=== PATIENT | female | born 1935 | race Caucasian/White ===

== ENCOUNTER 2017-03-27 14:13 | Emergency (ER) | payer MEDICARE, OTHER ==
[2017-03-27 14:23] VITALS: BP 125/56
[2017-03-27] MEDS ORDERED: HYDROmorphone 1 MG/ML Syringe IM ONE (14:41)
--- NOTE | 2017-03-27 15:46 | EDM.PDOC ---
ED HPI Trauma - General Chief Complaint: Lower Extremity Injury/Pain Stated Complaint: BY AMBULANCE Time Seen by Provider: 03/27/17 14:25 Source: Reports: Patient, EMS, Family (son), Old records, RN, RN notes reviewed History Limitations: Reports: No limitations - History of Present Illness INITIAL COMMENTS - FREE TEXT/NARRATIVE: Arrives from assisted living by ambulance with c/o left low back, buttock and hip pain. Denies injury, fall, or radiating pain. Hx of severe arthritis. Symptom Onset Date: 03/27/17 Occurred When: just prior to arrival Occurred Where: home Method of Injury: other (no injury) Severity: severe Pain/Injury Location: Reports: lower extremity, left Consciousness: Reports: no loss of consciousness, remembers incident Associated Symptoms: Reports: no other symptoms Allergies/ADRs: Allergies cefuroxime Allergy (Verified 03/27/17 14:26) Cannot Remember celecoxib [From Celebrex] Allergy (Verified 03/27/17 14:26) Cannot Remember latex Allergy (Verified 03/27/17 14:26) Cannot Remember morphine Allergy (Verified 03/27/17 14:26) Hypotension Nitrate Analogues Allergy (Verified 03/27/17 14:26) Cannot Remember omeprazole [From Prilosec] Allergy (Verified 03/27/17 14:26) Cannot Remember omeprazole magnesium [From Prilosec] Allergy (Verified 03/27/17 14:26) Cannot Remember rofecoxib [From Vioxx] Allergy (Verified 03/27/17 14:26) Cannot Remember simvastatin [From Zocor] Allergy (Verified 03/27/17 14:26) Cannot Remember tramadol Allergy (Verified 03/27/17 14:26) Cannot Remember Home Medications: Ambulatory Orders Hydrocodone/Acetaminophen [[place] 5-325 Tablet] 1 tab PO Q6H PRN 11/14/13 [ Confirmed 03/27/17] rOPINIRole [Requip] 3 mg PO BEDTIME 11/14/13 [Confirmed 03/27/17] Anastrozole [Arimidex] 1 mg PO DAILY 07/10/14 [Confirmed 03/27/17] Gabapentin [Neurontin] 300 mg PO TID 07/10/14 [Confirmed 03/27/17] Metoprolol Succinate [Toprol Xl] 100 mg PO DAILY 07/10/14 [Confirmed 03/27/17] RABEprazole [Aciphex] 20 mg PO BID 07/10/14 [Confirmed 03/27/17] Amitriptyline [Elavil] 25 mg PO BEDTIME 05/19/16 [Confirmed 03/27/17] Aspirin [Halfprin] 81 mg PO BRK 10/30/16 [Confirmed 03/27/17] Cholecalciferol (Vitamin D3) [Vitamin D] 5,000 unit PO DAILY 10/30/16 [ Confirmed 03/27/17] Magnesium 250 mg PO DAILY 10/30/16 [Confirmed 03/27/17] LORazepam [LORazepam] 1 tab PO ASDIRECTED PRN 03/27/17 [Confirmed 03/27/17] Past Medical History HEENT History: Reports: Impaired vision Other HEENT History: wears glasses Cardiovascular History: Reports: High cholesterol Other Cardiovascular History: PAROXYSMAL SUPRAVENTRICULAR TACHYCARDIA, HYPERLIPIDEMIA Other Gastrointestinal History: DIVERTICULOSIS OF COLON, HEPATIC CYST, PEPTIC ULCER DISEASE Genitourinary History: Reports: Urinary incontinence Other OB/BYN History: 5 PREGNANCIES, 4 LIVING Other Musculoskeletal History: DEGENERATIVE JOINT DISEASE, RESTLESS LEG SYNDROME , NECK PAIN Other Neuro History: SUBARACHNOID HEMMORRHAGE Psychiatric History: Reports: Anxiety Other Dermatologic History: HERPES ZOSTER - Past Surgical History Other HEENT Surgeries/Procedures: WEARS UPPER AND LOWER DENTURES Other Cardiovascular Surgeries/Procedures: "HEART TROUBLE IN 1995" Other GI Surgeries/Procedures: INGUINAL HERNIA REPAIR Other Musculoskeletal Surgeries/Procedures:: LEFT KNEE REPLACEMENT Other Oncologic Surgeries/Procedures: BREAST REDUCTION, RIGHT TOTAL MASTECTOMY AND SENTINEL NODE Social & Family History - Family History Family Medical History: Noncontributory - Tobacco Use Smoking Status *Q: Former Smoker Years of Tobacco use: 45 Packs/Tins Daily: 1.5 Used Tobacco, but Quit: Yes Month Tobacco Last Used: 1952 Second Hand Smoke Exposure: No - Caffeine Use Caffeine Use: Reports: Coffee, Soda - Alcohol Use Days Per Week of Alcohol Use: 0 - Recreational Drug Use Recreational Drug Use: No Drug Use in Last 12 Months: No - Living Situation & Occupation Living situation: Reports: Occupation: retired Review of Systems - Review of Systems Review Of Systems: ROS reveals no pertinent complaints other than HPI. Trauma Exam - Physical Exam Exam: See Below Exam Limited By: No limitations General Appearance: Reports: alert, WD/WN, no apparent distress, obese Head: Reports: atraumatic, normocephalic Throat/Mouth: Reports: Normal inspection Neck: Reports: normal inspection Respiratory Exam: Reports: no respiratory distress, lungs clear Cardiovascular: Reports: regular rate, rhythm GI/Abdominal: Reports: normal bowel sounds, soft, non tender, no distention, no abnormal bruit Back: Reports: decreased range of motion, paraspinal tenderness (lumbar). Denies: CVA tenderness (R), CVA tenderness (L), vertebral tenderness Extremities: Reports: pelvis stable, pain with movement (lumbar and left hip), tenderness (left SI region). Denies: unable to bear weight Neurologic: Reports: hammerer II-XII nml as tested, no motor/sensory deficits, alert , normal mood/affect, oriented x 3 Skin: Reports: Normal color, Warm/dry Course - Vital Signs Last Recorded V/S: Last Vital Signs Temp 36.1 C 03/27/17 14:20 Pulse 86 03/27/17 14:20 Resp 18 03/27/17 14:20 BP 125/56 L 03/27/17 14:20 Pulse Ox 94 L 03/27/17 14:20 - Orders/Labs/Meds Meds: Medications Discontinued Medications Generic Name Dose Route Start Last Admin Trade Name Freq PRN Reason Stop Dose Admin Hydromorphone HCl 1 mg 03/27/17 14:41 03/27/17 14:48 Dilaudid IM 03/27/17 14:42 1 mg ONETIME ONE Administration Departure - Departure Time of Disposition: 15:49 Disposition: Home, Self-Care 01 Condition: fair Clinical Impression: Facet arthritis, degenerative, L5-S1 level, lumbosacral spine Osteoarthritis of left hip Qualifiers: Osteoarthritis type: unspecified Qualified Code(s): M16.12 - Unilateral primary osteoarthritis, left hip Instructions: Hip Pain, Degenerative Disk Disease, Osteoarthritis Forms: ED Department Discharge Additional Instructions: Rx: Decadron 4mg Continue taking your Hydrocodone as prescribed. Follow up in clinic with your primary doctor next week for recheck.
== END 2017-03-27 16:04 | disposition home or self-care (01) ==
LOC: DL.ED 14:13
DX: M47.897 Other spondylosis, lumbosacral region (principal); M16.12 Unilateral primary osteoarthritis, left hip; E78.00 Pure hypercholesterolemia, unspecified; Z79.82 Long term (current) use of aspirin; Z87.891 Personal history of nicotine dependence; Z79.899 Other long term (current) drug therapy; Z88.8 Allergy status to other drugs, medicaments and biological substances; Z88.5 Allergy status to narcotic agent; Z91.040 Latex allergy status
CPT/HCPCS: 73502; 96374; 99283; J1170; 99284

== ENCOUNTER 2017-07-10 09:32 | Observation (INO) | payer MEDICARE, OTHER ==
--- NOTE | 2017-07-10 10:10 | EDM.PDOC ---
ED HPI GENERAL MEDICAL PROBLEM - General Chief Complaint: Respiratory Problem Stated Complaint: NOT FEELING WELL Time Seen by Provider: 07/10/17 09:55 Source of Information: Reports: Patient History Limitations: Reports: No Limitations - History of Present Illness INITIAL COMMENTS - FREE TEXT/NARRATIVE: This 82 yo female patient reports to the ED with increased shortness of breath, diffuse abdominal pain and abdominal bloating. The patient reports her symptoms started about 2 weeks ago. The patient reports she normally sees Dr. Schmidt in [place], but she does not have a ride to [place] today. The patient report she was hospitalized in [place] 3 weeks ago for generalized blood clots. The patient reports she has been having blood drawn and she has being given blood while at the long-term for low blood. Onset: Gradual Duration: Week(s):, Constant, Getting Worse Location: Reports: Chest, Abdomen Quality: Reports: Dull, Pressure Severity: Severe Improves with: Reports: None Worsens with: Reports: None Associated Symptoms: Reports: Shortness of Breath, Other (abdominal pain) Right Chest Pain Score (Numeric/FACES): 5 - Related Data Allergies Allergy/AdvReac Type Severity Reaction Status Date / Time cefuroxime Allergy Cannot Verified 07/10/17 13:11 Remember celecoxib [From Celebrex] Allergy Cannot Verified 07/10/17 13:11 Remember latex Allergy Cannot Verified 07/10/17 13:11 Remember morphine Allergy Hypotension Verified 07/10/17 13:11 Nitrate Analogues Allergy Cannot Verified 07/10/17 13:11 Remember omeprazole [From Prilosec] Allergy Cannot Verified 07/10/17 13:11 Remember omeprazole magnesium Allergy Cannot Verified 07/10/17 13:11 [From Prilosec] Remember rofecoxib [From Vioxx] Allergy Cannot Verified 07/10/17 13:11 Remember simvastatin [From Zocor] Allergy Cannot Verified 07/10/17 13:11 Remember tramadol Allergy Cannot Verified 07/10/17 13:11 Remember Home Meds: Home Meds Hydrocodone/Acetaminophen [[place] 5-325] 1 tab PO Q6H PRN 11/14/13 [History] rOPINIRole [Requip] 3 mg PO BEDTIME 11/14/13 [History] Anastrozole [Arimidex] 1 mg PO DAILY 07/10/14 [History] Gabapentin [Neurontin] 300 mg PO TID 07/10/14 [History] Metoprolol Succinate [Toprol Xl] 100 mg PO DAILY 07/10/14 [History] RABEprazole [Aciphex] 20 mg PO BID 07/10/14 [History] Amitriptyline [Elavil] 25 mg PO BEDTIME 05/19/16 [History] Aspirin [Halfprin] 81 mg PO QPM 10/30/16 [History] Cholecalciferol (Vitamin D3) [Vitamin D] 5,000 unit PO DAILY 10/30/16 [History] Magnesium 250 mg PO WITHLUNCH 10/30/16 [History] LORazepam 1 tab PO Q6H PRN 03/27/17 [History] Albuterol [Proair HFA] 2 inh INH Q4H PRN 05/27/17 [History] Warfarin [Coumadin] 5 mg PO DAILY #30 tablet 06/03/17 [Rx] Past Medical History HEENT History: Reports: Impaired Vision Other HEENT History: wears glasses Cardiovascular History: Reports: Aneurysm, High Cholesterol, Other (See Below) Other Cardiovascular History: PAROXYSMAL SUPRAVENTRICULAR TACHYCARDIA, HYPERLIPIDEMIA Respiratory History: Reports: SOB Gastrointestinal History: Reports: Diverticulosis, GERD, PUD, Other (See Below) Other Gastrointestinal History: DIVERTICULOSIS OF COLON, HEPATIC CYST, PEPTIC ULCER DISEASE Genitourinary History: Reports: None 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: Other OB/BYN History: 5 PREGNANCIES, 4 LIVING Musculoskeletal History: Reports: Arthritis, Neck Pain, Chronic Other Musculoskeletal History: DEGENERATIVE JOINT DISEASE, RESTLESS LEG SYNDROME , NECK PAIN Neurological History: Reports: Headaches, Chronic, Other (See Below) Other Neuro History: SUBARACHNOID HEMMORRHAGE Psychiatric History: Reports: Anxiety, Panic Attack Endocrine/Metabolic History: Reports: Obesity/BMI 30+ Oncologic (Cancer) History: Reports: Breast Dermatologic History: Reports: Other (See Below) Other Dermatologic History: HERPES ZOSTER - Past Surgical History HEENT Surgical History: Reports: None Cardiovascular Surgical History: Reports: Coronary Artery Bypass, Other (See Below) GI Surgical History: Reports: Colonoscopy Female Surgical History: Reports: Hysterectomy Musculoskeletal Surgical History: Reports: Knee Replacement, Other (See Below) Oncologic Surgical History: Reports: Mastectomy Social & Family History - Family History Family Medical History: Noncontributory - Tobacco Use Smoking Status *Q: Former Smoker Years of Tobacco use: 45 Packs/Tins Daily: 1.5 Used Tobacco, but Quit: Yes Month Tobacco Last Used: 22 years ago Second Hand Smoke Exposure: No - Caffeine Use Caffeine Use: Reports: Coffee, Soda - Alcohol Use Days Per Week of Alcohol Use: 0 - Recreational Drug Use Recreational Drug Use: No Drug Use in Last 12 Months: No - Living Situation & Occupation Living situation: Reports: Occupation: Retired ED ROS GENERAL - Review of Systems Review Of Systems: ROS reveals no pertinent complaints other than HPI. ED EXAM, GENERAL - Physical Exam Exam: See Below Exam Limited By: No Limitations General Appearance: Alert, WD/WN, Anxious, Moderate Distress, Obese Eye Exam: Bilateral Eye: EOMI, Normal Inspection, PERRL Ears: Normal External Exam, Normal Canal, Hearing Grossly Normal, Normal TMs Nose: Normal Inspection, Normal Mucosa, No Blood Head: Atraumatic, Normocephalic Neck: Normal Inspection, Supple, Non-Tender, Full Range of Motion Respiratory/Chest: Decreased Breath Sounds Cardiovascular: Normal Peripheral Pulses, Regular Rate, Rhythm, No Edema, No Gallop, No JVD, No Murmur, No Rub GI/Abdominal: Normal Bowel Sounds, Distended, Guarding, Tender (Female) Exam: Deferred Rectal (Female) Exam: Deferred Back Exam: Normal Inspection, Full Range of Motion, NT Extremities: Normal Inspection, Normal Range of Motion, Non-Tender, Normal Capillary Refill, Pedal Edema Neurological: Alert, Oriented, CN II-XII Intact, Normal Cognition, Normal Gait, Normal Reflexes, No Motor/Sensory Deficits Psychiatric: Anxious, Flat Affect Skin Exam: Warm, Dry, Intact, Normal Color, No Rash Lymphatic: No Adenopathy Course - Vital Signs Last Recorded V/S: Last Vital Signs Temp 36.0 C 07/10/17 09:32 Pulse 72 07/10/17 09:32 Resp 28 H 07/10/17 09:32 BP 149/67 H 07/10/17 09:32 Pulse Ox 94 L 07/10/17 09:32 - Orders/Labs/Meds Orders: Active Orders 24 hr Category Date Time Status EKG Documentation Completion [RC] URGENT Care 07/10/17 10:11 Active Chest Abdomen Pelvis w Cont [CT] Urgent Exams 07/10/17 11:12 Taken CULTURE BLOOD [BC] Stat Lab 07/10/17 10:30 Results CULTURE BLOOD [BC] Stat Lab 07/10/17 11:12 Results Blood Culture x2 Reflex Set [OM.PC] Stat Oth 07/10/17 09:58 Ordered Labs: Laboratory Tests 07/10/17 07/10/17 07/10/17 Range/Units 10:30 10:30 10:30 WBC 5.9 (5.0-10.0) 10^3/uL RBC 4.62 (4.2-5.4) 10^6/uL Hgb 14.4 (12.0-16.0) g/dL Hct 45.2 (37.0-47.0) % MCV 97.8 (80-100) fL MCH 31.2 (27.0-34.0) pg MCHC 31.9 L (33.0-35.0) g/dL Plt Count 125 L (150-450) 10^3/uL Neut % (Auto) 66.7 (42.2-75.2) % Lymph % (Auto) 19.5 L (20.5-50.1) % Grand % (Auto) 12.0 H (2-8) % Eos % (Auto) 1.5 (1.0-3.0) % Baso % (Auto) 0.3 (0.0-1.0) % PT 22.2 H (9.0-12.0) SEC INR 2.2 H (0.9-1.2) D-Dimer, Quantitative 981 H (0-400) ng/mL Sodium 142 (135-145) mmol/L Potassium 4.3 (3.6-5.0) mmol/L Chloride 101 (101-111) mmol/L Carbon Dioxide 30.0 (21.0-31.0) mmol/L Anion Gap 15.3 BUN 12 (7-18) mg/dL Creatinine 0.8 (0.6-1.3) mg/dL Est Cr Clr Drug Dosing 43.29 mL/min Estimated GFR (MDRD) > 60 BUN/Creatinine Ratio 15.00 Glucose 84 (74-105) mg/dL Lactic Acid (0.5-2.2) mmol/L Calcium 9.2 (8.4-10.2) mg/dl Total Bilirubin 0.4 (0.2-1.0) mg/dL AST 27 (10-42) IU/L ALT 19 (10-60) IU/L Alkaline Phosphatase 86 (42-121) IU/L Ammonia (11-35) umol/L Troponin I < 0.02 (0.00-0.02) ng/ml B-Natriuretic Peptide 57 (0-100) pg/ml Total Protein 7.0 (6.7-8.2) g/dl Albumin 3.8 (3.2-5.5) g/dl Globulin 3.2 Albumin/Globulin Ratio 1.19 Amylase 33 (28-100) U/L Lipase 16 L (22-51) U/L Urine Color (YELLOW) Urine Appearance (CLEAR) Urine pH (5.0-9.0) Ur Specific [place] (1.005-1.030) Urine Protein (NEGATIVE) Urine Glucose (UA) (NEGATIVE) Urine Ketones (NEGATIVE) Urine Occult Blood (NEGATIVE) Urine Nitrite (NEGATIVE) Urine Bilirubin (NEGATIVE) Urine Urobilinogen (0.2-1.0) mg/dL Ur Leukocyte Esterase (NEGATIVE) Urine RBC /HPF Urine WBC (0-5/HPF) /HPF Ur Epithelial Cells /HPF Urine Bacteria (0-FEW/HPF) /HPF Urine Mucus /LPF Urine Yeast (0/HPF) /HPF 07/10/17 07/10/17 07/10/17 Range/Units 10:30 11:12 12:11 WBC (5.0-10.0) 10^3/uL RBC (4.2-5.4) 10^6/uL Hgb (12.0-16.0) g/dL Hct (37.0-47.0) % MCV (80-100) fL MCH (27.0-34.0) pg MCHC (33.0-35.0) g/dL Plt Count (150-450) 10^3/uL Neut % (Auto) (42.2-75.2) % Lymph % (Auto) (20.5-50.1) % Grand % (Auto) (2-8) % Eos % (Auto) (1.0-3.0) % Baso % (Auto) (0.0-1.0) % PT (9.0-12.0) SEC INR (0.9-1.2) D-Dimer, Quantitative (0-400) ng/mL Sodium (135-145) mmol/L Potassium (3.6-5.0) mmol/L Chloride (101-111) mmol/L Carbon Dioxide (21.0-31.0) mmol/L Anion Gap BUN (7-18) mg/dL Creatinine (0.6-1.3) mg/dL Est Cr Clr Drug Dosing mL/min Estimated GFR (MDRD) BUN/Creatinine Ratio Glucose (74-105) mg/dL Lactic Acid 1.3 (0.5-2.2) mmol/L Calcium (8.4-10.2) mg/dl Total Bilirubin (0.2-1.0) mg/dL AST (10-42) IU/L ALT (10-60) IU/L Alkaline Phosphatase (42-121) IU/L Ammonia 30 (11-35) umol/L Troponin I (0.00-0.02) ng/ml B-Natriuretic Peptide (0-100) pg/ml Total Protein (6.7-8.2) g/dl Albumin (3.2-5.5) g/dl Globulin Albumin/Globulin Ratio Amylase (28-100) U/L Lipase (22-51) U/L Urine Color Dark yellow (YELLOW) Urine Appearance Cloudy (CLEAR) Urine pH 7.0 (5.0-9.0) Ur Specific [place] 1.010 (1.005-1.030) Urine Protein Negative (NEGATIVE) Urine Glucose (UA) Negative (NEGATIVE) Urine Ketones Negative (NEGATIVE) Urine Occult Blood Negative (NEGATIVE) Urine Nitrite Negative (NEGATIVE) Urine Bilirubin Negative (NEGATIVE) Urine Urobilinogen 0.2 (0.2-1.0) mg/dL Ur Leukocyte Esterase Negative (NEGATIVE) Urine RBC 0-5 /HPF Urine WBC 0-5 (0-5/HPF) /HPF Ur Epithelial Cells Few /HPF Urine Bacteria Few (0-FEW/HPF) /HPF Urine Mucus Rare /LPF Urine Yeast Few H (0/HPF) /HPF Meds: Medications Discontinued Medications Generic Name Dose Route Start Last Admin Trade Name Freq PRN Reason Stop Dose Admin Iopamidol 100 ml 07/10/17 11:21 07/10/17 11:50 Isovue-370 (76%) IVPUSH 07/10/17 11:22 73 ml ONETIME ONE Administration Departure - Departure Time of Disposition: 13:40 Disposition: Admitted As Inpatient 64 Condition: Fair Clinical Impression: Shortness of breath Pulmonary emboli Qualifiers: Pulmonary embolism type: other Chronicity: acute Acute cor pulmonale presence: without acute cor pulmonale Qualified Code(s): I26.99 - Other pulmonary embolism without acute cor pulmonale - Discharge Information Forms: ED Department Discharge Care Plan Goals: Discussed the examination, lab and CT results with Dr. De Paz. Dr. De Paz accepted the patient to [facility] for continued evaluation and management. - My Orders Last 24 Hours: My Active Orders 07/10/17 09:58 Blood Culture x2 Reflex Set [OM.PC] Stat 07/10/17 10:11 EKG Documentation Completion [RC] URGENT 07/10/17 10:30 CULTURE BLOOD [BC] Stat 07/10/17 11:12 Chest Abdomen Pelvis w Cont [CT] Urgent CULTURE BLOOD [BC] Stat - Assessment/Plan Last 24 Hours: My Active Orders 07/10/17 09:58 Blood Culture x2 Reflex Set [OM.PC] Stat 07/10/17 10:11 EKG Documentation Completion [RC] URGENT 07/10/17 10:30 CULTURE BLOOD [BC] Stat 07/10/17 11:12 Chest Abdomen Pelvis w Cont [CT] Urgent CULTURE BLOOD [BC] Stat
[2017-07-10 11:02] LABS: CHLORIDE,CL 101 mmol/L (101-111); SODIUM,NA 142 mmol/L (135-145)
[2017-07-10] MEDS ORDERED: Iopamidol 755 Mg/ML 100 ML Bottle IVPUSH ONE (11:21)
--- NOTE | 2017-07-10 11:24 | PCM.PRNOTE ---
- Free Text/Narrative Note: Called in to establish large bore IV access. Patient Id'd, site sleaned with EtOH and 18 G IV access established in Left AC and secured
[2017-07-10] MEDS ORDERED: Albuterol 0.083% 2.5 MG/3 ML Neb Soln NEB PRN (14:36)
--- NOTE | 2017-07-10 15:55 | PCM.HP ---
H&P History of Present Illness - General Date of Service: 07/10/17 Source of Information: Patient History Limitations: Reports: No Limitations - History of Present Illness Initial Comments - Free Text/Narative: 82 year old female went to the emergency room because of shortness of breath. patient was about to get up however for three times in a row getting up, she feels short of breath than usual. went to ER. on review of history, was recently admitted in [place], diagnosed with PE, and discharge on Warfarin. has been compliant with her coumadin. denies any fever, chills, cough, anginal chest pain. she has a history of coronary artery disease. At the ER, work up showed no leukocytosis, BNP normal and negative troponin. Scan showed mild opacities on bases could represent atelectasis or pneumonia. also, the filling defects noted were deemed to be chronic. initial saturation at the ER showed 94% at rest. Apparently, when patient's family arrived in the ER, she reported that she felt better. However, due to the shortness of breath, ER not comfortable sending her home, she was advised admission. Right Chest Pain Score (Numeric/FACES): 5 - Related Data Allergies/Adverse Reactions: Allergies Allergy/AdvReac Type Severity Reaction Status Date / Time cefuroxime Allergy Cannot Verified 07/10/17 13:51 Remember celecoxib [From Celebrex] Allergy Cannot Verified 07/10/17 13:51 Remember latex Allergy Cannot Verified 07/10/17 13:51 Remember morphine Allergy Hypotension Verified 07/10/17 13:51 Nitrate Analogues Allergy Cannot Verified 07/10/17 13:51 Remember omeprazole [From Prilosec] Allergy Cannot Verified 07/10/17 13:51 Remember omeprazole magnesium Allergy Cannot Verified 07/10/17 13:51 [From Prilosec] Remember rofecoxib [From Vioxx] Allergy Cannot Verified 07/10/17 13:51 Remember simvastatin [From Zocor] Allergy Cannot Verified 07/10/17 13:51 Remember tramadol Allergy Cannot Verified 07/10/17 13:51 Remember Home Medications: Home Meds Hydrocodone/Acetaminophen [[place] 5-325] 1 tab PO Q6H PRN 11/14/13 [History] rOPINIRole [Requip] 3 mg PO BEDTIME 11/14/13 [History] Anastrozole [Arimidex] 1 mg PO DAILY 07/10/14 [History] Gabapentin [Neurontin] 300 mg PO TID 07/10/14 [History] Metoprolol Succinate [Toprol Xl] 100 mg PO DAILY 07/10/14 [History] RABEprazole [Aciphex] 20 mg PO BID 07/10/14 [History] Amitriptyline [Elavil] 25 mg PO BEDTIME 05/19/16 [History] Aspirin [Halfprin] 81 mg PO QPM 10/30/16 [History] Cholecalciferol (Vitamin D3) [Vitamin D] 5,000 unit PO DAILY 10/30/16 [History] Magnesium 250 mg PO WITHLUNCH 10/30/16 [History] LORazepam 1 tab PO Q6H PRN 03/27/17 [History] Albuterol [Proair HFA] 2 inh INH Q4H PRN 05/27/17 [History] Warfarin [Coumadin] 2 mg PO DAILY 07/10/17 [History] Past Medical History HEENT History: Reports: Impaired Vision Other HEENT History: wears glasses Cardiovascular History: Reports: Aneurysm, Blood Clots/VTE/DVT, High Cholesterol , SOB on Exertion, Other (See Below) Other Cardiovascular History: PAROXYSMAL SUPRAVENTRICULAR TACHYCARDIA, HYPERLIPIDEMIA Respiratory History: Reports: PE, SOB Gastrointestinal History: Reports: Diverticulosis, GERD, PUD, Other (See Below) Other Gastrointestinal History: DIVERTICULOSIS OF COLON, HEPATIC CYST, PEPTIC ULCER DISEASE Genitourinary History: Reports: None 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: Other OB/BYN History: 5 PREGNANCIES, 4 LIVING Musculoskeletal History: Reports: Arthritis, Neck Pain, Chronic Other Musculoskeletal History: DEGENERATIVE JOINT DISEASE, RESTLESS LEG SYNDROME , NECK PAIN Neurological History: Reports: Headaches, Chronic, Other (See Below) Other Neuro History: SUBARACHNOID HEMMORRHAGE Psychiatric History: Reports: Anxiety, Panic Attack Endocrine/Metabolic History: Reports: Obesity/BMI 30+ Oncologic (Cancer) History: Reports: Breast Dermatologic History: Reports: Other (See Below) Other Dermatologic History: HERPES ZOSTER - Infectious Disease History Infectious Disease History: Reports: Chicken Pox, Measles, Mumps - Past Surgical History HEENT Surgical History: Reports: None Cardiovascular Surgical History: Reports: Coronary Artery Bypass, Other (See Below) GI Surgical History: Reports: Colonoscopy Female Surgical History: Reports: Hysterectomy Musculoskeletal Surgical History: Reports: Knee Replacement, Other (See Below) Oncologic Surgical History: Reports: Mastectomy Social & Family History - Family History Family Medical History: Noncontributory - Tobacco Use Smoking Status *Q: Former Smoker Years of Tobacco use: 45 Packs/Tins Daily: 1.5 Used Tobacco, but Quit: Yes Month Tobacco Last Used: 22 years ago Second Hand Smoke Exposure: No - Caffeine Use Caffeine Use: Reports: Coffee, Soda - Alcohol Use Days Per Week of Alcohol Use: 0 - Recreational Drug Use Recreational Drug Use: No Drug Use in Last 12 Months: No - Living Situation & Occupation Living situation: Reports: Occupation: Retired H&P Review of Systems - Review of Systems: Review Of Systems: See Below General: Reports: No Symptoms HEENT: Reports: No Symptoms Pulmonary: Reports: Shortness of Breath, Wheezing Cardiovascular: Reports: No Symptoms Gastrointestinal: Reports: Other (she denies abdominal pain to me, no nausea nor vomiting) Genitourinary: Reports: No Symptoms Musculoskeletal: Reports: Joint Pain Exam - Exam Exam: See Below - Vital Signs Vital Signs: Last Vital Signs Temp 36.2 C 07/10/17 13:48 Pulse 74 07/10/17 13:48 Resp 20 07/10/17 13:48 BP 144/71 H 07/10/17 13:48 Pulse Ox 98 07/10/17 14:44 Weight: 96.332 kg - Exam General: Alert, Oriented Neck: Supple, Trachea Midline Lungs: Normal Respiratory Effort Cardiovascular: Regular Rate, Regular Rhythm GI/Abdominal Exam: Normal Bowel Sounds, Soft, Non-Tender Extremities: Other (pitting edema noted bilaterally) Neurological: Cranial Nerves Intact Neuro Extensive - Mental Status: Alert, Oriented x3 - Patient Data Result Diagrams: 07/10/17 10:30 07/10/17 10:30 *Q Meaningful Use (ADM) - VTE *Q VTE Criteria *Q: - Stroke *Q Stroke Criteria *Q: - AMI *Q AMI Criteria *Q: Problem List Initiated/Reviewed/Updated: Yes Orders Last 24hrs: Active Orders 24 hr Category Date Time Status Antiembolic Devices [RC] PER UNIT ROUTINE Care 07/10/17 14:37 Active Cardiac Monitoring [RC] CONTINUOUS Care 07/10/17 14:37 Active Incentive Spirometry [RT Incentive Spirometry] [RC] Care 07/10/17 14:38 Active ASDIRECTED Oxygen Therapy [RC] PRN Care 07/10/17 13:41 Active Oxygen Therapy [RC] PRN Care 07/10/17 14:36 Active RT Aerosol Therapy [RC] ASDIRECTED Care 07/10/17 14:37 Active Up With Assistance [RC] ASDIRECTED Care 07/10/17 14:36 Active VTE/DVT Education [RC] PER UNIT ROUTINE Care 07/10/17 14:36 Active Vital Signs [RC] Q4H Care 07/10/17 14:36 Active 2 Gram Sodium Diet [DIET] Diet 07/10/17 Dinner Active Albuterol [Proventil Neb Soln] Med 07/10/17 14:36 Active 2.5 mg NEB Q4HRRT PRN Antiembolic Hose [OM.PC] Per Unit Routine Oth 07/10/17 14:37 Ordered Code Status [Resuscitation Status] Routine Resus Stat 07/10/17 14:57 Ordered Medication Orders Albuterol (Proventil Neb Soln) 2.5 mg NEB Q4HRRT PRN PRN Reason: shortness of breath/wheezing Assessment/Plan Comment:: 1. shortness of breath, multifactorial - likely related to recent PE versus obesity - CT scan did not show any acute defects, her INR have been therapeutic, even had a supratherapeutic reading last month - unlikely to be fluid overload, although with her history of CAD, would be reasonable to have an ECHOcardiogram done (which cannot be done as of the moment , no tech available). stress test done in 2013 showed an ejective fraction 79% with no reversible defect - also may need to have a formal pulmonary function test (which cannot be done as of the moment). - for the atelectasis, will have her do incentive spirometry - will have her oxygen saturation check on exertion/ambulation 2. bilateral pulmonary emboli - continue warfarin 2mg daily - dialy INR 3. Hypertension - continue Toprol 4. History of CAD - anginal chest pain free; initial troponin normal - will be hooked on telemetry during her stay 5. GERD - Rabeprazole 6. history of breast CA - on Anastrozole 7. osteoarthritis - on pain medication; requesting to have ICY hot 8. Code status: full
[2017-07-10] MEDS ORDERED: Albuterol 6.7 GM Inhaler INH PRN (16:05)
[2017-07-10] MEDS: LORazepam 1 MG Tab PO PRN ×2 (16:21→21:21)
[2017-07-10] MEDS: Acetaminophen/HYDROcodone 325-5 MG Tab PO PRN ×2 (16:26→21:22)
[2017-07-10] MEDS: Menthol/Methyl Salicylate 85 GM Tube TOP SCH ×2 (17:11→21:20)
[2017-07-10] MEDS ORDERED: RABEPRAZOLE 20 MG PO SCH (21:00)
[2017-07-10] MEDS ORDERED: rOPINIRole 2 MG Tab PO SCH (21:00)
[2017-07-10] MEDS ORDERED: Amitriptyline 25 MG Tab PO SCH (21:00)
[2017-07-10] MEDS: Gabapentin 300 MG Cap PO SCH (21:21)
[2017-07-11] MEDS: Acetaminophen/HYDROcodone 325-5 MG Tab PO PRN (05:35)
[2017-07-11 07:48] VITALS: BP 128/68
[2017-07-11] MEDS ORDERED: Aspirin 81 MG Tab.EC PO SCH (08:00)
[2017-07-11] MEDS: Gabapentin 300 MG Cap PO SCH (08:22)
[2017-07-11] MEDS: Menthol/Methyl Salicylate 85 GM Tube TOP SCH (08:22)
[2017-07-11] MEDS: LORazepam 1 MG Tab PO PRN (08:22)
--- NOTE | 2017-07-11 08:33 | PCM.DCSUM1 ---
Discharge Summary - Hospital Course Free Text/Narrative:: This is a 82 year old female came to the emergency room because of shortness of breath. Pt was recently admitted in [place], diagnosed with PE, and discharge on Warfarin and has been compliant with her coumadin and INR on target. She denied any fever, chills, cough, anginal chest pain. she has a history of coronary artery disease. In ER, work up showed no leukocytosis, BNP normal and negative troponin. CT scan of Chest showed mild opacities on bases could represent atelectasis or pneumonia. also, the filling defects noted were deemed to be chronic. initial saturation at the ER showed 94% at rest. Apparently, when patient's family arrived in the ER, she reported that she felt better. However, due to the shortness of breath, ER not comfortable sending her home, she was advised admission. she was admitted for observation and her oxygen saturation were monitored and start on albuterol nebs PRN to keep 02 sat at >90%. she is doing well and will be going home. - Discharge Data Discharge Date: 07/11/17 Discharge Disposition: Home, Self-Care 01 Condition: Good - Discharge Diagnosis/Problem(s) (1) Pulmonary emboli SNOMED Code(s): 20303218, 86122606 ICD Code: I26.99 - OTHER PULMONARY EMBOLISM WITHOUT ACUTE COR PULMONALE Status: Acute Current Visit: Yes (2) Shortness of breath SNOMED Code(s): 041289784 ICD Code: R06.02 - SHORTNESS OF BREATH Status: Acute Current Visit: Yes (3) Chronic pain SNOMED Code(s): 17617694 ICD Code: G89.29 - OTHER CHRONIC PAIN Status: Acute Current Visit: No - Patient Instructions Diet: Regular Diet as Tolerated Activity: As Tolerated Driving: May Drive Today Showering/Bathing: May Shower Notify Provider of: Fever, Increased Pain Other/Special Instructions: Pt will be discharge home today and advise her to have a follow up with PMD in this week within 4-5 days ( Either Thursday/ /Thursday). she will not need any medication change, will resume all her home medication. Continue Pain medication as prescribed by her PMD. Follow with Antocoagulation clinic for Coumadin dose adjustment as needed - Discharge Plan Prescriptions/Med Rec: Menthol/Methyl Salicylate [Icy Hot Cream] 0 gm TOP TID #1 tube Home Medications: Home Meds Hydrocodone/Acetaminophen [[place] 5-325] 1 tab PO Q6H PRN 11/14/13 [History] rOPINIRole [Requip] 3 mg PO BEDTIME 11/14/13 [History] Anastrozole [Arimidex] 1 mg PO DAILY 07/10/14 [History] Gabapentin [Neurontin] 300 mg PO TID 07/10/14 [History] Metoprolol Succinate [Toprol Xl] 100 mg PO DAILY 07/10/14 [History] RABEprazole [Aciphex] 20 mg PO BID 07/10/14 [History] Amitriptyline [Elavil] 25 mg PO BEDTIME 05/19/16 [History] Aspirin [Halfprin] 81 mg PO QPM 10/30/16 [History] Cholecalciferol (Vitamin D3) [Vitamin D] 5,000 unit PO DAILY 10/30/16 [History] Magnesium 250 mg PO WITHLUNCH 10/30/16 [History] LORazepam 1 tab PO Q6H PRN 03/27/17 [History] Albuterol [Proair HFA] 2 inh INH Q4H PRN 05/27/17 [History] Warfarin [Coumadin] 2 mg PO DAILY 07/10/17 [History] Menthol/Methyl Salicylate [Icy Hot Cream] 0 gm TOP TID #1 tube 07/11/17 [Rx] Forms: ED Department Discharge - General Info Date of Service: 07/11/17 Admission Dx/Problem (Free Text: admitted with increased shortness of breath Functional Status: Reports: Pain Controlled, Tolerating Diet, Ambulating, Urinating - Review of Systems General: Reports: Appetite (good). Denies: Fever, Malaise, Chills HEENT: Denies: Ear Pain, Headaches, Sinus Congestion, Sore Throat, Visual Changes Pulmonary: Denies: Shortness of Breath, Cough, Sputum, Wheezing Cardiovascular: Denies: Chest Pain, Dyspnea on Exertion, Lightheadedness Gastrointestinal: Denies: Abdominal Pain, Constipation, Diarrhea, Nausea, Vomiting Genitourinary: Denies: Dysuria, Burning, Urgency, Flank Pain Musculoskeletal: Reports: Foot Pain, Other (heel pain) Skin: Denies: Jaundice, Bruising, Pruritis Neurological: Denies: Confusion, Weakness Psychiatric: Denies: Confusion, Anxiety - Patient Data Vitals - Most Recent: Last Vital Signs Temp 36.7 C 07/11/17 07:46 Pulse 76 07/11/17 08:21 Resp 20 07/11/17 07:46 BP 128/68 07/11/17 08:21 Pulse Ox 97 07/11/17 07:46 Weight - Most Recent: 96.332 kg I&O - Last 24 hours: Intake & Output 07/10/17 07/11/17 07/11/17 22:59 06:59 14:59 Intake Total 425 200 Output Total 725 Balance -300 200 Lab Results - Last 24 hrs: Laboratory Results - last 24 hr 07/11/17 07/11/17 Range/Units 06:16 06:16 PT 20.1 H (9.0-12.0) SEC INR 2.0 H (0.9-1.2) Troponin I < 0.02 (0.00-0.02) ng/ml Med Orders - Current: Current Medications Hydrocodone Bitart/Acetaminophen ([place] 325-5 Mg) 1 tab PO Q6H PRN PRN Reason: Pain Last Admin: 07/11/17 05:35 Dose: 1 tab Albuterol (Proventil Neb Soln) 2.5 mg NEB Q4HRRT PRN PRN Reason: shortness of breath/wheezing Last Admin: 07/10/17 16:21 Dose: 2.5 mg Albuterol (Proventil Hfa) 0 gm INH Q4H PRN PRN Reason: Shortness of Breath Amitriptyline HCl (Elavil) 25 mg PO BEDTIME [facility] Last Admin: 07/10/17 21:20 Dose: 25 mg Aspirin (Halfprin) 81 mg PO DAILY@0800 [facility] Last Admin: 07/11/17 08:21 Dose: 81 mg Gabapentin (Neurontin) 300 mg PO TID [facility] Last Admin: 07/11/17 08:22 Dose: 300 mg Lorazepam (Ativan) 1 mg PO Q6H PRN PRN Reason: Anxiety Last Admin: 07/11/17 08:22 Dose: 1 mg Magnesium Oxide (Magnesium Oxide) 250 mg PO WITHLUNCH [facility] Methyl Salicylate (Icy Hot Cream) 0 gm TOP TID [facility] Last Admin: 07/11/17 08:22 Dose: 1 applic Metoprolol Succinate (Toprol Xl) 100 mg PO DAILY [facility] Last Admin: 07/11/17 08:21 Dose: 100 mg Non-Formulary Medication (Anastrozole [Arimidex]) 1 mg PO DAILY [facility] Non-Formulary Medication (Cholecalciferol (Vitamin D3) [Vitamin D]) 5,000 unit PO DAILY [facility] Non-Formulary Medication (Rabeprazole [Aciphex]) 20 mg PO BID [facility] Ropinirole HCl (Requip) 3 mg PO BEDTIME [facility] Last Admin: 07/10/17 21:22 Dose: 3 mg Warfarin Sodium (Coumadin) 2 mg PO DAILY@1400 [facility] Discontinued Medications Iopamidol (Isovue-370 (76%)) 100 ml IVPUSH ONETIME ONE Stop: 07/10/17 11:22 Last Admin: 07/10/17 11:50 Dose: 73 ml - Exam Quality Assessment: Reports: DVT Prophylaxis. Denies: Supplemental Oxygen, Urine Catheter General: Reports: Alert, Oriented, Cooperative HEENT: Reports: Pupils Equal, Mucous Membr. Moist/[place] Neck: Reports: Supple. Denies: No JVD, Lymphadenopathy, Thyromegaly Lungs: Reports: Clear to Auscultation, Normal Respiratory Effort Cardiovascular: Reports: Regular Rate, Regular Rhythm GI/Abdominal Exam: Normal Bowel Sounds, No Organomegaly. No: Guarding, Rebound (Female) Exam: Deferred Rectal (Female) Exam: Deferred Back Exam: Reports: Normal Inspection, Full Range of Motion Extremities: Normal Inspection. No: No Pedal Edema, Joint Swelling Skin: Reports: Warm, Dry, Intact Neurological: Reports: No New Focal Deficit Psy/Mental Status: Reports: Alert, Normal Affect, Normal Mood *Q Meaningful Use (DIS) - VTE *Q VTE Criteria *Q: - Stroke *Q Stroke Criteria *Q: - AMI *Q AMI Criteria *Q:
[2017-07-11] MEDS ORDERED: Metoprolol Succinate 50 MG Tab.ER PO SCH (09:00)
[2017-07-11] MEDS ORDERED: Non-Formulary Medication 1 Each (Cholecalciferol (Vitamin D3) [Vitamin D] 5,000 UNIT) PO SCH (09:00)
[2017-07-11] MEDS ORDERED: ANASTROZOLE 1 MG PO SCH (09:00)
[2017-07-11] MEDS ORDERED: Warfarin 2 MG Tab PO ONE (10:30)
[2017-07-11] MEDS ORDERED: Warfarin 2 MG Tab PO SCH (14:00)
--- NOTE | 2017-07-14 09:39 | EKG ---
07/10/2017- NICKY FONTENOT - EKG done on an 82-year-old female showing sinus rhythm, heart rate of 70 beats per minute. Left anterior fascicular block. Normal intervals. No acute ST wave changes. [facility] /[id number] MTDD
== END 2017-07-11 10:30 | disposition home or self-care (01) ==
LOC: DL.ED 09:32 → UNDOADMOB 13:38 → DL.MS 13:38
PROVIDERS: ADMIT Internal Medicine; ATTEND Internal Medicine
DX: I26.99 Other pulmonary embolism without acute cor pulmonale (principal); R06.02 Shortness of breath; G89.29 Other chronic pain; Z79.82 Long term (current) use of aspirin; Z79.899 Other long term (current) drug therapy
CPT/HCPCS: 36415; 71260; 74177; 80053; 81001; 82140; 82150; 83605; 83690; 83880; 84484; 85025; 85379; 85610; 87040; 93005; 99285; A9270; J7620; Q9967; 36410; 93010; 99217; G0378

== ENCOUNTER 2017-11-19 18:11 | Emergency (ER) | payer MEDICARE, OTHER ==
[2017-11-19 18:44] VITALS: BP 155/93
[2017-11-19] MEDS ORDERED: Ketorolac 30 MG/ML SDV IVPUSH ONE (18:47)
--- NOTE | 2017-11-19 18:53 | EDM.PDOC ---
ED HPI GENERAL MEDICAL PROBLEM - General Chief Complaint: Back Pain or Injury Stated Complaint: SEVERE BACK/LEG PAINS, [id number] Time Seen by Provider: 11/19/17 18:50 Source of Information: Reports: Patient, Family History Limitations: Reports: No Limitations - History of Present Illness INITIAL COMMENTS - FREE TEXT/NARRATIVE: pt states turned wrong @4pm and felt sudden pain right hip area, denies falling but hurts alot. also right chest been hurting too from old surgery been taking hydrocod daily. Left Back Pain Score (Numeric/FACES): 10 - Related Data Allergies Allergy/AdvReac Type Severity Reaction Status Date / Time cefuroxime Allergy Cannot Verified 11/19/17 18:44 Remember celecoxib [From Celebrex] Allergy Cannot Verified 11/19/17 18:44 Remember latex Allergy Cannot Verified 11/19/17 18:44 Remember morphine Allergy Hypotension Verified 11/19/17 18:44 Nitrate Analogues Allergy Cannot Verified 11/19/17 18:44 Remember omeprazole [From Prilosec] Allergy Cannot Verified 11/19/17 18:44 Remember omeprazole magnesium Allergy Cannot Verified 11/19/17 18:44 [From Prilosec] Remember rofecoxib [From Vioxx] Allergy Cannot Verified 11/19/17 18:44 Remember simvastatin [From Zocor] Allergy Cannot Verified 11/19/17 18:44 Remember tramadol Allergy Cannot Verified 11/19/17 18:44 Remember Home Meds: Home Meds Hydrocodone/Acetaminophen [[place] 5-325] 1 tab PO Q6H PRN 11/14/13 [History] rOPINIRole [Requip] 3 mg PO BEDTIME 11/14/13 [History] Anastrozole [Arimidex] 1 mg PO DAILY 07/10/14 [History] Gabapentin [Neurontin] 300 mg PO TID 07/10/14 [History] Metoprolol Succinate [Toprol Xl] 100 mg PO DAILY 07/10/14 [History] RABEprazole [Aciphex] 20 mg PO BID 07/10/14 [History] Amitriptyline [Elavil] 25 mg PO BEDTIME 05/19/16 [History] Aspirin [Halfprin] 81 mg PO QPM 10/30/16 [History] Cholecalciferol (Vitamin D3) [Vitamin D] 5,000 unit PO DAILY 10/30/16 [History] Magnesium 250 mg PO WITHLUNCH 10/30/16 [History] LORazepam 1 tab PO Q6H PRN 03/27/17 [History] Albuterol [Proair HFA] 2 inh INH Q4H PRN 05/27/17 [History] Warfarin [Coumadin] 2 mg PO DAILY 07/10/17 [History] Menthol/Methyl Salicylate [Icy Hot Cream] 0 gm TOP TID #1 tube 07/11/17 [Rx] Furosemide [Lasix] 20 mg PO DAILY 11/19/17 [History] Past Medical History HEENT History: Reports: Impaired Vision Other HEENT History: wears glasses Cardiovascular History: Reports: Aneurysm, Blood Clots/VTE/DVT, High Cholesterol , SOB on Exertion, Other (See Below) Other Cardiovascular History: PAROXYSMAL SUPRAVENTRICULAR TACHYCARDIA, HYPERLIPIDEMIA Respiratory History: Reports: PE, SOB Gastrointestinal History: Reports: Diverticulosis, GERD, PUD, Other (See Below) Other Gastrointestinal History: DIVERTICULOSIS OF COLON, HEPATIC CYST, PEPTIC ULCER DISEASE Genitourinary History: Reports: None 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 OB/BYN History: 5 PREGNANCIES, 4 LIVING Musculoskeletal History: Reports: Arthritis, Neck Pain, Chronic Other Musculoskeletal History: DEGENERATIVE JOINT DISEASE, RESTLESS LEG SYNDROME , NECK PAIN Neurological History: Reports: Headaches, Chronic, Other (See Below) Other Neuro History: SUBARACHNOID HEMMORRHAGE Psychiatric History: Reports: Anxiety, Panic Attack Endocrine/Metabolic History: Reports: Obesity/BMI 30+ Oncologic (Cancer) History: Reports: Breast Dermatologic History: Reports: Other (See Below) Other Dermatologic History: HERPES ZOSTER - Infectious Disease History Infectious Disease History: Reports: Chicken Pox, Measles, Mumps - Past Surgical History HEENT Surgical History: Reports: None Cardiovascular Surgical History: Reports: Coronary Artery Bypass, Other (See Below) GI Surgical History: Reports: Colonoscopy Female Surgical History: Reports: Hysterectomy Musculoskeletal Surgical History: Reports: Knee Replacement, Other (See Below) Oncologic Surgical History: Reports: Mastectomy Social & Family History - Family History Family Medical History: Noncontributory - Tobacco Use Smoking Status *Q: Unknown Ever Smoked Years of Tobacco use: 45 Packs/Tins Daily: 1.5 Used Tobacco, but Quit: Yes Month Tobacco Last Used: 22 years ago Second Hand Smoke Exposure: No - Caffeine Use Caffeine Use: Reports: Coffee - Alcohol Use Days Per Week of Alcohol Use: 0 - Recreational Drug Use Recreational Drug Use: No Drug Use in Last 12 Months: No - Living Situation & Occupation Living situation: Reports: Occupation: Retired ED ROS GENERAL - Review of Systems Review Of Systems: ROS reveals no pertinent complaints other than HPI. ED EXAM,LOWER BACK PAIN/INJURY - Physical Exam Exam: See Below Exam Limited By: No Limitations General Appearance: Alert, WD/WN, Mild Distress, Moderate Distress, Other (hip pain) Ears: Hearing Grossly Normal Throat/Mouth: Normal Voice, No Airway Compromise Head: Atraumatic Neck: Non-Tender, Full Range of Motion Respiratory/Chest: No Respiratory Distress Cardiovascular: Regular Rate, Rhythm GI/Abdominal: Soft, Non-Tender Back Exam: Other (right hip tender to deep palpation with sciatic radiation.) Extremities: Other (right hip tender on R/P. NV ess wnl, gait limited to pain, uses walker.) Psychiatric: Tearful Skin Exam: Warm, Dry, Normal Color Course - Vital Signs Last Recorded V/S: Last Vital Signs Temp 35.9 C 11/19/17 18:36 Pulse 66 11/19/17 18:36 Resp 14 11/19/17 18:36 BP 155/93 H 11/19/17 18:36 Pulse Ox 94 L 11/19/17 18:36 - Orders/Labs/Meds Orders: Active Orders 24 hr Category Date Time Status EKG 12 Lead [EKG Documentation Completion] [RC] STAT Care 11/19/17 18:47 Active Sodium Chloride 0.9% [Normal Saline] 1,000 ml Med 11/19/17 19:00 Active IV ASDIRECTED Medication Orders Sodium Chloride (Normal Saline) 1,000 mls @ 150 mls/hr IV ASDIRECTED BOB Last Admin: 11/19/17 19:10 Dose: 150 mls/hr Labs: Laboratory Tests 11/19/17 11/19/17 11/19/17 Range/Units 19:00 19:00 19:00 WBC 5.8 (5.0-10.0) 10^3/uL RBC 4.38 (4.2-5.4) 10^6/uL Hgb 13.0 (12.0-16.0) g/dL Hct 41.6 (37.0-47.0) % MCV 95.0 (80-100) fL MCH 29.7 (27.0-34.0) pg MCHC 31.3 L (33.0-35.0) g/dL Plt Count 137 L (150-450) 10^3/uL Neut % (Auto) 59.2 (42.2-75.2) % Lymph % (Auto) 26.9 (20.5-50.1) % Upson % (Auto) 11.0 H (2-8) % Eos % (Auto) 2.2 (1.0-3.0) % Baso % (Auto) 0.7 (0.0-1.0) % PT 16.9 H (9.0-12.0) SEC INR 1.7 H (0.9-1.2) Sodium 141 (135-145) mmol/L Potassium 4.0 (3.6-5.0) mmol/L Chloride 97 L (101-111) mmol/L Carbon Dioxide 33.0 H (21.0-31.0) mmol/L Anion Gap 15.0 BUN 13 (7-18) mg/dL Creatinine 1.0 (0.6-1.3) mg/dL Est Cr Clr Drug Dosing TNP Estimated GFR (MDRD) 53 BUN/Creatinine Ratio 13.00 Glucose 88 (74-105) mg/dL Calcium 8.9 (8.4-10.2) mg/dl Total Bilirubin 0.5 (0.2-1.0) mg/dL AST 23 (10-42) IU/L ALT 16 (10-60) IU/L Alkaline Phosphatase 88 (42-121) IU/L Troponin I < 0.02 (0.00-0.02) ng/ml Total Protein 6.5 L (6.7-8.2) g/dl Albumin 3.6 (3.2-5.5) g/dl Globulin 2.9 Albumin/Globulin Ratio 1.24 Meds: Medications Generic Name Dose Route Start Last Admin Trade Name Freq PRN Reason Stop Dose Admin Sodium Chloride 1,000 mls @ 150 mls/hr 11/19/17 19:00 11/19/17 19:10 Normal Saline IV 150 mls/hr ASDIRECTED BOB Administration Discontinued Medications Generic Name Dose Route Start Last Admin Trade Name Freq PRN Reason Stop Dose Admin Hydrocodone Bitart/Acetaminophen 1 tab 11/19/17 19:37 11/19/17 19:44 [place] 325-10 Mg PO 11/19/17 19:38 1 tab ONETIME ONE Administration Ketorolac Tromethamine 15 mg 11/19/17 18:47 11/19/17 19:10 Toradol IVPUSH 11/19/17 18:48 15 mg ONETIME ONE Administration - Re-Assessments/Exams Free Text/Narrative Re-Assessment/Exam: 11/19/17 19:28 re-exam; s/p IV toradol = much better @ hip but now the pain has moved down to her knee going down to her leg. states take hydrocod q 6 hours and last one was @ 8am. 11/19/17 20:45 s/p hydrocod = pain all gone 11/19/17 21:25 re-exam; results discussed with pt who is feeling fine now. Departure - Departure Time of Disposition: 21:25 Disposition: Home, Self-Care 01 Condition: Good Clinical Impression: Facet arthritis, degenerative, L5-S1 level, lumbosacral spine Osteoarthritis of right hip Qualifiers: Osteoarthritis type: unspecified Qualified Code(s): M16.11 - Unilateral primary osteoarthritis, right hip - Discharge Information Instructions: Back Pain, Adult, [id number] Referrals: PCP,Not In Area [Primary Care Provider] - Forms: ED Department Discharge Additional Instructions: 1) rest and avoid bending lifting straining 2) try ice or heat to sore areas 3) continue home meds 4) recheck as needed - My Orders Last 24 Hours: My Active Orders 11/19/17 18:47 EKG 12 Lead [EKG Documentation Completion] [RC] STAT 11/19/17 19:00 Sodium Chloride 0.9% [Normal Saline] 1,000 ml IV ASDIRECTED - Assessment/Plan Last 24 Hours: My Active Orders 11/19/17 18:47 EKG 12 Lead [EKG Documentation Completion] [RC] STAT 11/19/17 19:00 Sodium Chloride 0.9% [Normal Saline] 1,000 ml IV ASDIRECTED
[2017-11-19] MEDS ORDERED: Sodium Chloride 0.9% 1,000 ML IV SCH (19:00)
[2017-11-19 19:26] LABS: CHLORIDE,CL 97 mmol/L (101-111); SODIUM,NA 141 mmol/L (135-145)
[2017-11-19] MEDS ORDERED: Acetaminophen/HYDROcodone 325-10 MG Tab PO ONE (19:37)
--- NOTE | 2017-11-25 21:26 | EKG ---
11/19/2017 - NICKY FONTENOT - This 12-lead EKG shows atrial fibrillation with a controlled ventricular rate of 65. There is baseline artifact seen throughout the limb leads. There is a left anterior fascicular block. Borderline T-wave abnormalities with flattening seen throughout the leads. There are no acute ST-segment or T-wave changes. [facility] /[id number]
== END 2017-11-19 21:44 | disposition home or self-care (01) ==
LOC: DL.ED 18:11
DX: M47.897 Other spondylosis, lumbosacral region (principal); M16.11 Unilateral primary osteoarthritis, right hip; Z79.82 Long term (current) use of aspirin; Z79.899 Other long term (current) drug therapy; Z91.040 Latex allergy status; Z88.5 Allergy status to narcotic agent; Z88.8 Allergy status to other drugs, medicaments and biological substances; Z79.01 Long term (current) use of anticoagulants
CPT/HCPCS: 36415; 72192; 80053; 84484; 85025; 85610; 93005; 93010; 96361; 96374; 99284; A9270; J1885; J7030

== ENCOUNTER 2018-03-31 11:30 | Emergency (ER) | payer MEDICARE, OTHER ==
[2018-03-31 11:43] VITALS: BP 118/61
--- NOTE | 2018-03-31 12:15 | EDM.PDOC ---
ED HPI GENERAL MEDICAL PROBLEM - General Chief Complaint: Upper Extremity Injury/Pain Stated Complaint: ARM INJURY Time Seen by Provider: 03/31/18 11:55 Source of Information: Reports: Patient, Family, RN, RN Notes Reviewed History Limitations: Reports: No Limitations - History of Present Illness INITIAL COMMENTS - FREE TEXT/NARRATIVE: Pt presents to the ER with c/o pain in the left shoulder after a fall this morning. Pt states she was standing up from working on a puzzle when she lost her balance and fell. She caught herself on a chair and felt pain in the left shoulder. She states she has had some pain in the right shoulder in the past. Pt states she is unable to lift the left arm as high as normal, and is tender to touch in the posterior shoulder. Pt denies hitting her head or losing consciousness. Onset: Today, Sudden Left Shoulder Pain Score (Numeric/FACES): 8 - Related Data Allergies Allergy/AdvReac Type Severity Reaction Status Date / Time cefuroxime Allergy Cannot Verified 03/31/18 11:38 Remember celecoxib [From Celebrex] Allergy Cannot Verified 03/31/18 11:38 Remember latex Allergy Cannot Verified 03/31/18 11:38 Remember morphine Allergy Hypotension Verified 03/31/18 11:38 Nitrate Analogues Allergy Cannot Verified 03/31/18 11:38 Remember omeprazole [From Prilosec] Allergy Cannot Verified 03/31/18 11:38 Remember omeprazole magnesium Allergy Cannot Verified 03/31/18 11:38 [From Prilosec] Remember rofecoxib [From Vioxx] Allergy Cannot Verified 03/31/18 11:38 Remember simvastatin [From Zocor] Allergy Cannot Verified 03/31/18 11:38 Remember tramadol Allergy Cannot Verified 03/31/18 11:38 Remember Home Meds: Home Meds Hydrocodone/Acetaminophen [[employer] 5-325] 1 tab PO Q6H PRN 11/14/13 [History] rOPINIRole [Requip] 3 mg PO BEDTIME 11/14/13 [History] Anastrozole [Arimidex] 1 mg PO DAILY 07/10/14 [History] Gabapentin [Neurontin] 300 mg PO TID 07/10/14 [History] Metoprolol Succinate [Toprol Xl] 100 mg PO DAILY 07/10/14 [History] RABEprazole [Aciphex] 20 mg PO BID 07/10/14 [History] Amitriptyline [Elavil] 25 mg PO BEDTIME 05/19/16 [History] Aspirin [Halfprin] 81 mg PO QPM 10/30/16 [History] Cholecalciferol (Vitamin D3) [Vitamin D] 5,000 unit PO DAILY 10/30/16 [History] Magnesium 250 mg PO WITHLUNCH 10/30/16 [History] LORazepam 1 tab PO Q6H PRN 03/27/17 [History] Albuterol [Proair HFA] 2 inh INH Q4H PRN 05/27/17 [History] Warfarin [Coumadin] 2 mg PO DAILY 07/10/17 [History] Menthol/Methyl Salicylate [Icy Hot Cream] 0 gm TOP TID #1 tube 07/11/17 [Rx] Furosemide [Lasix] 20 mg PO DAILY 11/19/17 [History] Pregabalin [Lyrica] 50 mg PO BID 03/31/18 [History] Past Medical History HEENT History: Reports: Impaired Vision Other HEENT History: wears glasses Cardiovascular History: Reports: Aneurysm, Blood Clots/VTE/DVT, High Cholesterol , SOB on Exertion, Other (See Below) Other Cardiovascular History: PAROXYSMAL SUPRAVENTRICULAR TACHYCARDIA, HYPERLIPIDEMIA Respiratory History: Reports: PE, SOB Gastrointestinal History: Reports: Diverticulosis, GERD, PUD, Other (See Below) Other Gastrointestinal History: DIVERTICULOSIS OF COLON, HEPATIC CYST, PEPTIC ULCER DISEASE Genitourinary History: Reports: None 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 OB/BYN History: 5 PREGNANCIES, 4 LIVING Musculoskeletal History: Reports: Arthritis, Neck Pain, Chronic Other Musculoskeletal History: DEGENERATIVE JOINT DISEASE, RESTLESS LEG SYNDROME , NECK PAIN Neurological History: Reports: Headaches, Chronic, Other (See Below) Other Neuro History: SUBARACHNOID HEMMORRHAGE Psychiatric History: Reports: Anxiety, Panic Attack Endocrine/Metabolic History: Reports: Obesity/BMI 30+ Oncologic (Cancer) History: Reports: Breast Dermatologic History: Reports: Other (See Below) Other Dermatologic History: HERPES ZOSTER - Infectious Disease History Infectious Disease History: Reports: Chicken Pox, Measles, Mumps - Past Surgical History HEENT Surgical History: Reports: None Cardiovascular Surgical History: Reports: Coronary Artery Bypass, Other (See Below) GI Surgical History: Reports: Colonoscopy Female Surgical History: Reports: Hysterectomy Musculoskeletal Surgical History: Reports: Knee Replacement, Other (See Below) Oncologic Surgical History: Reports: Mastectomy Social & Family History - Family History Family Medical History: Noncontributory - Tobacco Use Smoking Status *Q: Never Smoker Second Hand Smoke Exposure: No - Caffeine Use Caffeine Use: Reports: Coffee - Recreational Drug Use Recreational Drug Use: No - Living Situation & Occupation Living situation: Reports: Occupation: Retired Review of Systems - Review of Systems Review Of Systems: ROS reveals no pertinent complaints other than HPI. ED EXAM, GENERAL - Physical Exam Exam: See Below Exam Limited By: No Limitations General Appearance: Alert, WD/WN, No Apparent Distress Eye Exam: Bilateral Eye: EOMI, Normal Inspection Ears: Normal External Exam, Hearing Grossly Normal Nose: Normal Inspection Throat/Mouth: Normal Inspection, Normal Voice, No Airway Compromise Head: Atraumatic, Normocephalic Neck: Normal Inspection Respiratory/Chest: No Respiratory Distress, No Accessory Muscle Use, Chest Non- Tender, Decreased Breath Sounds Cardiovascular: Normal Peripheral Pulses, Regular Rate, Rhythm, No Gallop, No JVD, No Murmur, No Rub Peripheral Pulses: 2+: Radial (L), Radial (R) GI/Abdominal: Normal Bowel Sounds, Soft, Non-Tender (Female) Exam: Deferred Rectal (Female) Exam: Deferred Back Exam: Normal Inspection, Decreased Range of Motion Extremities: Normal Inspection, Normal Capillary Refill, Pedal Edema, Arm Pain ( left), Limited Range of Motion (left arm) Neurological: Alert, Oriented, Normal Cognition Psychiatric: Normal Affect, Normal Mood Skin Exam: Warm, Dry, Intact, Normal Color, No Rash Lymphatic: No Adenopathy Course - Vital Signs Last Recorded V/S: Last Vital Signs Temp 97.3 F 03/31/18 11:38 Pulse 78 03/31/18 11:38 Resp 16 03/31/18 11:38 BP 118/61 03/31/18 11:38 Pulse Ox 95 03/31/18 11:38 - Radiology Interpretation Free Text/Narrative:: Left shoulder xray: No acute findings See Rad report Departure - Departure Time of Disposition: 13:21 Disposition: Home, Self-Care 01 Condition: Fair Clinical Impression: Sprain of shoulder Qualifiers: Encounter type: initial encounter Shoulder sprain type: unspecified sprain Laterality: left Qualified Code(s): S43.402A - Unspecified sprain of left shoulder joint, initial encounter Shoulder pain, acute Qualifiers: Laterality: left Qualified Code(s): M25.512 - Pain in left shoulder - Discharge Information Instructions: Shoulder Pain, Shoulder Pain, [id number] Forms: ED Department Discharge Additional Instructions: Follow up with Kailee Madrigal tomorrow for possible order for MRI of shoulder
--- NOTE | 2018-03-31 12:52 | CR ---
Clinical history: 83-year-old female left shoulder pain (fall). Interpretation: Abnormal. Deformity humeral head and chronic arthritic changes glenohumeral joint consistent with old trauma. *Humeral head is elevated relative to the glenoid of scapula with consequent narrowing of the space b etween the acromion process scapula and humerus suggesting... rotator cuff impingement and/or tear. N o juxta-articular rotator cuff tendon calcifications. No sign of pathologic skeletal lesion, acute left shoulder fracture, acromioclavicular separation or glenohumeral dislocation. Sternotomy wires. Left lung apex clear. No cervical rib anomalies. Note: Appearance left shoulder unchanged when compared directly back to AP chest film 14 February 2016.
== END 2018-03-31 13:25 | disposition home or self-care (01) ==
LOC: DL.ED 11:30
DX: S43.402A Unspecified sprain of left shoulder joint, initial encounter (principal); E66.9 Obesity, unspecified; Z88.8 Allergy status to other drugs, medicaments and biological substances; Z91.040 Latex allergy status; Z88.5 Allergy status to narcotic agent; Z79.899 Other long term (current) drug therapy; W19.XXXA Unspecified fall, initial encounter
CPT/HCPCS: 73030-LT; 99283

== ENCOUNTER 2018-05-09 08:48 | Emergency (ER) | payer MEDICARE, OTHER ==
[2018-05-09 09:03] VITALS: BP 160/67
[2018-05-09 09:53] LABS: CHLORIDE,CL 102 mmol/L (101-111); SODIUM,NA 139 mmol/L (135-145)
--- NOTE | 2018-05-09 09:53 | EDM.PDOC ---
ED HPI GENERAL MEDICAL PROBLEM - General Chief Complaint: General Stated Complaint: FEELS: FAINT, LIKE THROUGHING UP Time Seen by Provider: 05/09/18 09:05 Source of Information: Reports: Patient, Family, RN Notes Reviewed - History of Present Illness INITIAL COMMENTS - FREE TEXT/NARRATIVE: C/O feeling dizzy and nauseated, Able to eat banana this am, Reports similar sx since Thursday. Family report was in clinic Thursday but did not mention anything. Labs done that day normal. Patient states took 2 hydrocodone at bedtime 2 am and then this am. Son notes usually one every 6 hours. Ativan at bedtime usually, today took one in am. . States always dizzy, change in position does not worsen, reports feeling better when up. Son notes morning bad. Also son mentioned higher level of care from Assisted Living to [facility] is being considered. Generalized Pain Score (Numeric/FACES): 7 - Related Data Allergies Allergy/AdvReac Type Severity Reaction Status Date / Time cefuroxime Allergy Cannot Verified 03/31/18 11:38 Remember celecoxib [From Celebrex] Allergy Cannot Verified 03/31/18 11:38 Remember latex Allergy Cannot Verified 03/31/18 11:38 Remember morphine Allergy Hypotension Verified 03/31/18 11:38 Nitrate Analogues Allergy Cannot Verified 03/31/18 11:38 Remember omeprazole [From Prilosec] Allergy Cannot Verified 03/31/18 11:38 Remember omeprazole magnesium Allergy Cannot Verified 03/31/18 11:38 [From Prilosec] Remember rofecoxib [From Vioxx] Allergy Cannot Verified 03/31/18 11:38 Remember simvastatin [From Zocor] Allergy Cannot Verified 03/31/18 11:38 Remember tramadol Allergy Cannot Verified 03/31/18 11:38 Remember Home Meds: Home Meds Hydrocodone/Acetaminophen [Orchard 5-325] 1 tab PO Q6H PRN 11/14/13 [History] rOPINIRole [Requip] 3 mg PO BEDTIME 11/14/13 [History] Anastrozole [Arimidex] 1 mg PO DAILY 07/10/14 [History] Metoprolol Succinate [Toprol Xl] 100 mg PO DAILY 07/10/14 [History] RABEprazole [Aciphex] 20 mg PO BID 07/10/14 [History] Aspirin [Halfprin] 81 mg PO QPM 10/30/16 [History] Cholecalciferol (Vitamin D3) [Vitamin D] 5,000 unit PO DAILY 10/30/16 [History] Magnesium 250 mg PO WITHLUNCH 10/30/16 [History] LORazepam 1 tab PO Q6H PRN 03/27/17 [History] Albuterol [Proair HFA] 2 inh INH Q4H PRN 05/27/17 [History] Warfarin [Coumadin] 2 mg PO DAILY 07/10/17 [History] DULoxetine [Cymbalta] 60 mg PO DAILY 05/09/18 [History] Folic Acid 1 mg PO DAILY 05/09/18 [History] Torsemide 5 mg PO DAILY PRN 05/09/18 [History] Past Medical History HEENT History: Reports: Impaired Vision Other HEENT History: wears glasses Cardiovascular History: Reports: Aneurysm, Blood Clots/VTE/DVT, Bypass, High Cholesterol, SOB on Exertion, Other (See Below) Other Cardiovascular History: PAROXYSMAL SUPRAVENTRICULAR TACHYCARDIA, HYPERLIPIDEMIA Respiratory History: Reports: PE, SOB Gastrointestinal History: Reports: Diverticulosis, GERD, PUD, Other (See Below) Other Gastrointestinal History: DIVERTICULOSIS OF COLON, HEPATIC CYST, PEPTIC ULCER DISEASE Genitourinary History: Reports: None MICROBIOLOGY COORDINATOR History: Reports: Other OB/BYN History: 5 PREGNANCIES, 4 LIVING Musculoskeletal History: Reports: Arthritis, Neck Pain, Chronic Other Musculoskeletal History: DEGENERATIVE JOINT DISEASE, RESTLESS LEG SYNDROME , NECK PAIN Neurological History: Reports: Headaches, Chronic, Other (See Below) Other Neuro History: SUBARACHNOID HEMMORRHAGE Psychiatric History: Reports: Anxiety, Panic Attack Endocrine/Metabolic History: Reports: Obesity/BMI 30+ Oncologic (Cancer) History: Reports: Breast Dermatologic History: Reports: Other (See Below) Other Dermatologic History: HERPES ZOSTER - Infectious Disease History Infectious Disease History: Reports: Chicken Pox, Measles, Mumps - Past Surgical History HEENT Surgical History: Reports: None Cardiovascular Surgical History: Reports: Coronary Artery Bypass, Other (See Below) GI Surgical History: Reports: Colonoscopy Female Surgical History: Reports: Hysterectomy Musculoskeletal Surgical History: Reports: Knee Replacement, Other (See Below) Other Musculoskeletal Surgeries/Procedures:: bilateral knees Oncologic Surgical History: Reports: Mastectomy Other Oncologic Surgeries/Procedures: right sided Social & Family History - Family History Family Medical History: Noncontributory - Tobacco Use Smoking Status *Q: Former Smoker Used Tobacco, but Quit: Yes Month/Year Tobacco Last Used: 1994 - Caffeine Use Caffeine Use: Reports: Soda - Recreational Drug Use Recreational Drug Use: No - Living Situation & Occupation Living situation: Reports: Occupation: Retired ED ROS GENERAL - Review of Systems Review Of Systems: ROS reveals no pertinent complaints other than HPI. ED EXAM, GENERAL - Physical Exam Exam: See Below Exam Limited By: Other (drowsy) General Appearance: No Apparent Distress Eye Exam: Bilateral Eye: EOMI Ears: Normal External Exam, Normal TMs Nose: Normal Inspection Throat/Mouth: Normal Inspection Head: Atraumatic, Normocephalic Neck: Normal Inspection Respiratory/Chest: No Respiratory Distress, Lungs Clear, Normal Breath Sounds Cardiovascular: Normal Peripheral Pulses, Regular Rate, Rhythm, No Edema GI/Abdominal: Normal Bowel Sounds, Soft, Non-Tender Extremities: No: No Pedal Edema (trace) Neurological: Alert, Oriented Psychiatric: Flat Affect Skin Exam: Warm, Dry, Intact, Normal Color Course - Vital Signs Last Recorded V/S: Last Vital Signs Temp 96.9 F 05/09/18 09:03 Pulse 64 05/09/18 09:03 Resp 18 05/09/18 09:03 BP 160/67 H 05/09/18 09:03 Pulse Ox 94 L 05/09/18 09:03 Orthostatic Blood Pressure [ 136/70 Standing] Orthostatic Blood Pressure [ 158/68 Sitting] Orthostatic Blood Pressure [ 139/60 Supine] - Orders/Labs/Meds Orders: Active Orders 24 hr Category Date Time Status EKG Documentation Completion [RC] URGENT Care 05/09/18 09:17 Active CXR [Chest 1V Frontal] [CR] Urgent Exams 05/09/18 09:17 Taken UA W/MICROSCOPIC [URIN] Stat Lab 05/09/18 09:34 Ordered Labs: Laboratory Tests 05/09/18 05/09/18 05/09/18 Range/Units 09:29 09:29 09:34 WBC 4.7 L (5.0-10.0) 10^3/uL RBC 4.26 (4.2-5.4) 10^6/uL Hgb 12.4 (12.0-16.0) g/dL Hct 39.3 (37.0-47.0) % MCV 92.3 (80-100) fL MCH 29.1 (27.0-34.0) pg MCHC 31.6 L (33.0-35.0) g/dL Plt Count 123 L (150-450) 10^3/uL Neut % (Auto) 62.4 (42.2-75.2) % Lymph % (Auto) 24.4 (20.5-50.1) % Kendall % (Auto) 10.9 H (2-8) % Eos % (Auto) 1.7 (1.0-3.0) % Baso % (Auto) 0.6 (0.0-1.0) % Sodium 139 (135-145) mmol/L Potassium 3.8 (3.6-5.0) mmol/L Chloride 102 (101-111) mmol/L Carbon Dioxide 30.0 (21.0-31.0) mmol/L Anion Gap 10.8 BUN 13 (7-18) mg/dL Creatinine 0.7 (0.6-1.3) mg/dL Est Cr Clr Drug Dosing 48.60 mL/min Estimated GFR (MDRD) > 60 BUN/Creatinine Ratio 18.57 Glucose 100 (74-105) mg/dL Calcium 9.0 (8.4-10.2) mg/dl Total Bilirubin 0.6 (0.2-1.0) mg/dL AST 26 (10-42) IU/L ALT 17 (10-60) IU/L Alkaline Phosphatase 70 (42-121) IU/L Troponin I < 0.02 (0.00-0.02) ng/ml B-Natriuretic Peptide 96 (0-100) pg/ml Total Protein 6.3 L (6.7-8.2) g/dl Albumin 3.6 (3.2-5.5) g/dl Globulin 2.7 Albumin/Globulin Ratio 1.33 Urine Color Yellow (YELLOW) Urine Appearance Slightly cloudy (CLEAR) Urine pH 5.5 (5.0-9.0) Ur Specific [place] 1.025 (1.005-1.030) Urine Protein Negative (NEGATIVE) Urine Glucose (UA) Negative (NEGATIVE) Urine Ketones Negative (NEGATIVE) Urine Occult Blood Negative (NEGATIVE) Urine Nitrite Negative (NEGATIVE) Urine Bilirubin Small H (NEGATIVE) Urine Urobilinogen 0.2 (0.2-1.0) mg/dL Ur Leukocyte Esterase Negative (NEGATIVE) Urine RBC 0-5 /HPF Urine WBC 5-10 H (0-5/HPF) /HPF Ur Epithelial Cells Few /HPF Urine Bacteria Few (0-FEW/HPF) /HPF Urine Mucus Few H /LPF Urine Yeast Few H (0/HPF) /HPF Departure - Departure Time of Disposition: 10:31 Disposition: Home, Self-Care 01 Condition: Good Clinical Impression: Side effect of medication - Discharge Information Instructions: Chronic Pain, Adult Forms: ED Department Discharge Additional Instructions: Lorazepam only at bedtime as needed Follow up with primary care if additional mediaction needed during daytime for anxiety or to augment pain medication - My Orders Last 24 Hours: My Active Orders 05/09/18 09:17 EKG Documentation Completion [RC] URGENT CXR [Chest 1V Frontal] [CR] Urgent 05/09/18 09:34 UA W/MICROSCOPIC [URIN] Stat - Assessment/Plan Last 24 Hours: My Active Orders 05/09/18 09:17 EKG Documentation Completion [RC] URGENT CXR [Chest 1V Frontal] [CR] Urgent 05/09/18 09:34 UA W/MICROSCOPIC [URIN] Stat
--- NOTE | 2018-05-11 07:13 | EKG ---
05/09/2018- NICKY FONTENOT - EKG per my reading shows sinus rhythm at the rate of 62. [facility] /[id number]
== END 2018-05-09 10:40 | disposition home or self-care (01) ==
LOC: DL.ED 08:48
DX: R42 Dizziness and giddiness (principal); T40.2X5A Adverse effect of other opioids, initial encounter; E66.9 Obesity, unspecified; Z88.8 Allergy status to other drugs, medicaments and biological substances; Z91.040 Latex allergy status; Z88.5 Allergy status to narcotic agent; Z79.899 Other long term (current) drug therapy; Z79.01 Long term (current) use of anticoagulants; Z87.891 Personal history of nicotine dependence
CPT/HCPCS: 36415; 51701; 71045; 80053; 81001; 83880; 84484; 85025; 93005; 93010; 99283; 99284

== ENCOUNTER 2019-11-24 10:58 | Emergency (ER) | payer MEDICARE, OTHER ==
[2019-11-24 11:12] VITALS: BP 99/58; PULSE 88
--- NOTE | 2019-11-24 11:18 | EDM.PDOC ---
ED HPI GENERAL MEDICAL PROBLEM - General Chief Complaint: General Stated Complaint: BLOOD PRESURE HIGH OXEGEN LOW Time Seen by Provider: 11/24/19 11:17 Source of Information: Reports: Patient, Fdc Records, Old Records, RN, RN Notes Reviewed History Limitations: Reports: Other (Pt confused with Hx of chronic dementia.) - History of Present Illness INITIAL COMMENTS - FREE TEXT/NARRATIVE: Pt brought to ER from skilled nursing by her son with report that she was going to be seen in clinic today, but Dr. De Paz called and told them to go to the ER. Neither the pt nor the son feel that the pt needs to be seen in the ER, and they deny any emergent complaints or symptoms. The skilled nursing called to report that the pt had an episode late last night where she became confused and had elevated blood pressure, and may have had some facial droop. The son states that he was notified, and went to the skilled nursing last night but he did not see any facial droop or slurred speech. Dr. Garg was combination building inspector, and was consulted last night. Dr. Garg gave a medication, but the son does not know what it was. This morning the pt had a lab draw and UA. The son states he was told the labs were normal, except for a UTI. The pt denies any complaints or pain at this time. Onset: Unknown/Unsure Duration: Resolved Prior to Arrival Location: Reports: Generalized Improves with: Reports: None Worsens with: Reports: None Associated Symptoms: Reports: No Other Symptoms Generalized Pain Score (Numeric/FACES): 5 - Related Data Allergies Allergy/AdvReac Type Severity Reaction Status Date / Time cefuroxime Allergy Cannot Verified 11/24/19 11:17 Remember celecoxib [From Celebrex] Allergy Cannot Verified 11/24/19 11:17 Remember latex Allergy Cannot Verified 11/24/19 11:17 Remember morphine Allergy Hypotension Verified 11/24/19 11:17 Nitrate Analogues Allergy Cannot Verified 11/24/19 11:17 Remember omeprazole [From Prilosec] Allergy Cannot Verified 11/24/19 11:17 Remember omeprazole magnesium Allergy Cannot Verified 11/24/19 11:17 [From Prilosec] Remember rofecoxib [From Vioxx] Allergy Cannot Verified 11/24/19 11:17 Remember simvastatin [From Zocor] Allergy Cannot Verified 11/24/19 11:17 Remember tramadol Allergy Cannot Verified 11/24/19 11:17 Remember Home Meds: Home Meds Hydrocodone/Acetaminophen [[place]ryan 5-325] 1 tab PO Q6H PRN 11/14/13 [History] rOPINIRole [Requip] 3 mg PO BEDTIME 11/14/13 [History] Anastrozole [Arimidex] 1 mg PO DAILY 07/10/14 [History] Metoprolol Succinate [Toprol Xl] 100 mg PO DAILY 07/10/14 [History] RABEprazole [Aciphex] 20 mg PO BID 07/10/14 [History] Aspirin [Halfprin] 81 mg PO QPM 10/30/16 [History] Cholecalciferol (Vitamin D3) [Vitamin D] 5,000 unit PO DAILY 10/30/16 [History] Magnesium 250 mg PO WITHLUNCH 10/30/16 [History] LORazepam 1 mg PO TID PRN 03/27/17 [History] DULoxetine [Cymbalta] 60 mg PO DAILY 05/09/18 [History] Folic Acid 1 mg PO DAILY 05/09/18 [History] Polyethylene Glycol 3350 [MiraLAX] 17 gram PO BID PRN 07/23/18 [History] Albuterol [Ventolin HFA] 2 puff INH Q4H PRN 09/30/18 [History] Lidocaine 5% [Lidoderm 5%] 1 patch TOP DAILY 09/30/18 [History] OLANZapine [ZyPREXA] 5 mg PO BID #30 tablet 10/05/18 [Rx] Warfarin [Coumadin] 2 mg PO DAILY #30 tab 10/05/18 [Rx] Past Medical History HEENT History: Reports: Impaired Vision Other HEENT History: wears glasses Cardiovascular History: Reports: Aneurysm, Blood Clots/VTE/DVT, Bypass, High Cholesterol, SOB on Exertion, Other (See Below) Other Cardiovascular History: PAROXYSMAL SUPRAVENTRICULAR TACHYCARDIA, HYPERLIPIDEMIA Respiratory History: Reports: PE, SOB Gastrointestinal History: Reports: Diverticulosis, GERD, PUD, Other (See Below) Other Gastrointestinal History: DIVERTICULOSIS OF COLON, HEPATIC CYST, PEPTIC ULCER DISEASE Genitourinary History: Reports: None CHIEF AIRLINE RADIO OPERATOR History: Reports: Other CHIEF AIRLINE RADIO OPERATOR History: 5 PREGNANCIES, 4 LIVING Musculoskeletal History: Reports: Arthritis, Neck Pain, Chronic Other Musculoskeletal History: DEGENERATIVE JOINT DISEASE, RESTLESS LEG SYNDROME , NECK PAIN Neurological History: Reports: Headaches, Chronic, Other (See Below) Other Neuro History: SUBARACHNOID HEMMORRHAGE Psychiatric History: Reports: Anxiety, Dementia, Panic Attack Endocrine/Metabolic History: Reports: Obesity/BMI 30+ Hematologic History: Reports: None Immunologic History: Reports: None Oncologic (Cancer) History: Reports: Breast Dermatologic History: Reports: Other (See Below) Other Dermatologic History: HERPES ZOSTER - Infectious Disease History Infectious Disease History: Reports: Chicken Pox, Measles, Mumps - Past Surgical History Head Surgeries/Procedures: Reports: None HEENT Surgical History: Reports: None Cardiovascular Surgical History: Reports: Coronary Artery Bypass, Other (See Below) GI Surgical History: Reports: Colonoscopy Female Surgical History: Reports: Hysterectomy Musculoskeletal Surgical History: Reports: Knee Replacement, Other (See Below) Other Musculoskeletal Surgeries/Procedures:: bilateral knees Oncologic Surgical History: Reports: Mastectomy Other Oncologic Surgeries/Procedures: right sided Social & Family History - Family History Family Medical History: Noncontributory - Caffeine Use Caffeine Use: Reports: None - Living Situation & Occupation Living situation: Reports: , Extended Care Facility Occupation: Retired ED ROS GENERAL - Review of Systems Review Of Systems: Comprehensive ROS is negative, except as noted in HPI. ED EXAM, GENERAL - Physical Exam Exam: See Below Exam Limited By: No Limitations General Appearance: Alert, WD/WN, No Apparent Distress Eye Exam: Bilateral Eye: EOMI, Normal Inspection, PERRL Nose: Normal Inspection Throat/Mouth: Normal Inspection, Normal Lips, Normal Voice, No Airway Compromise Head: Atraumatic, Normocephalic Neck: Normal Inspection Respiratory/Chest: No Respiratory Distress, Lungs Clear, No Accessory Muscle Use , Chest Non-Tender, Decreased Breath Sounds Cardiovascular: Regular Rate, Rhythm, No Edema GI/Abdominal: Normal Bowel Sounds, Soft, Non-Tender, No Distention, Pelvis Stable. No: Guarding, Rigid, Rebound (Female) Exam: Deferred Rectal (Female) Exam: Deferred Back Exam: Normal Inspection Extremities: Normal Inspection, Non-Tender Neurological: Alert, CN II-XII Intact, No Motor/Sensory Deficits, Confused, Memory Loss Recent Events Psychiatric: Normal Affect, Normal Mood Skin Exam: Warm, Dry Course - Vital Signs Last Recorded V/S: Last Vital Signs Temp 97.1 F 11/24/19 11:07 Pulse 88 01/02/20 11:07 Resp 16 11/24/19 11:07 BP 99/58 L 11/24/19 11:07 Pulse Ox 95 11/24/19 11:07 - Orders/Labs/Meds Labs: NM lab results (from [facility] dated 11/24/19) reviewed by me. Meds: Medications Discontinued Medications Generic Name Dose Route Start Last Admin Trade Name Freq PRN Reason Stop Dose Admin Ciprofloxacin 500 mg 11/24/19 11:39 Ciprofloxacin Hcl PO 11/24/19 11:40 ONETIME ONE Departure - Departure Time of Disposition: 11:41 Disposition: Home, Self-Care 01 Condition: Fair Clinical Impression: Encounter for medical screening examination Urinary tract infection Qualifiers: Urinary tract infection type: site unspecified Hematuria presence: without hematuria Qualified Code(s): N39.0 - Urinary tract infection, site not specified - Discharge Information *PRESCRIPTION DRUG MONITORING PROGRAM REVIEWED*: No *COPY OF PRESCRIPTION DRUG MONITORING REPORT IN PATIENT LAURIE: No Instructions: Urinary Tract Infection, Adult, [id number] Forms: ED Department Discharge Additional Instructions: Rx: Cipro 500mg Follow up with Dr. De Paz for urine recheck next week. Sepsis Event Note - Evaluation Sepsis Screening Result: No Definite Risk - Focused Exam Vital Signs: Vital Signs Temp Pulse Resp BP Pulse Ox 11/24/19 11:07 97.1 F 88 16 99/58 L 95 Date Exam was Performed: 11/24/19 Time Exam was Performed: 11:43
[2019-11-24] MEDS ORDERED: Ciprofloxacin 500 MG Tab PO ONE (11:39)
== END 2019-11-24 11:55 | disposition home or self-care (01) ==
LOC: DL.ED 10:58
DX: N39.0 Urinary tract infection, site not specified (principal); E66.9 Obesity, unspecified; F03.90 Unspecified dementia, unspecified severity, without behavioral disturbance, psychotic disturbance, mood disturbance, and anxiety; Z88.5 Allergy status to narcotic agent; Z91.040 Latex allergy status; Z88.8 Allergy status to other drugs, medicaments and biological substances; Z79.82 Long term (current) use of aspirin; Z79.899 Other long term (current) drug therapy; Z79.01 Long term (current) use of anticoagulants; Z95.1 Presence of aortocoronary bypass graft; Z90.710 Acquired absence of both cervix and uterus
CPT/HCPCS: 99283; A9270